=== PATIENT | female | born 1955 | race Caucasian/White ===

== ENCOUNTER 2024-12-22 11:08 | Outpatient (CLI) | payer MEDICARE, BC | END 2024-12-22 23:59 | disposition home or self-care (01) | LOC: MRI02 11:08 | PROVIDERS: ATTEND Podiatrist Foot & Ankle Surgery | DX: S93.422A Sprain of deltoid ligament of left ankle, initial encounter (principal); M25.372 Other instability, left ankle; M79.672 Pain in left foot; S93.439A Sprain of tibiofibular ligament of unspecified ankle, initial encounter; M25.472 Effusion, left ankle; M19.072 Primary osteoarthritis, left ankle and foot; S92.912A Unspecified fracture of left toe(s), initial encounter for closed fracture; S93.409A Sprain of unspecified ligament of unspecified ankle, initial encounter; X58.XXXA Exposure to other specified factors, initial encounter; Y93.89 Activity, other specified; Y92.89 Other specified places as the place of occurrence of the external cause; Y99.8 Other external cause status | CPT/HCPCS: 73721 ==

== ENCOUNTER 2025-07-26 14:22 | Outpatient (CLI) | payer MEDICARE, BC ==
--- NOTE | 2025-07-26 17:14 | RADIOLOGY REPORT ---
CLINICAL INDICATION: Post-traumatic osteoarthritis,left TECHNIQUE: DI ANKLE, COMPLETE(3VW MIN) Comparison: None FINDINGS/IMPRESSION: : There is no evidence of acute fracture or dislocation. Small joint effusion.
== END 2025-07-26 23:59 | disposition home or self-care (01) ==
LOC: RAD 14:22
PROVIDERS: ATTEND Podiatrist Foot & Ankle Surgery
DX: M19.172 Post-traumatic osteoarthritis, left ankle and foot (principal); M25.572 Pain in left ankle and joints of left foot; M25.472 Effusion, left ankle
CPT/HCPCS: 73610